=== PATIENT | female | born 1950 | race Caucasian/White ===

== ENCOUNTER 2022-11-17 15:27 | Outpatient (CLI) | payer MEDICARE, OTHER, SELFPAY ==
[2022-11-17 17:11] LABS: Albumin* 4.5 g/dL (3.3-5.0); Chloride* 105 mmol/L (96-114); Potassium* 4.5 mmol/L (3.6-5.1); Sodium* 142 mmol/L (135-149)
[2022-11-17 17:13] LABS: Carbon Dioxide* 30 mmol/L (20-32); Cholesterol* 180 mg/dL (90-199); Creatinine* 0.9 mg/dL (0.5-1.5); Estimated Glomerular Filt Rate 67 ml/min
[2022-11-17 17:14] LABS: Alanine Aminotransferase* 18 U/L (4-35); Alkaline Phosphatase* 84 U/L (40-150); Aspartate Amino Transferase* 23 U/L (12-35); Bilirubin Total* 0.4 mg/dL (0.1-1.5); Blood Urea Nitrogen* 14 mg/dL (7-30); Calcium* 9.9 mg/dL (8.4-10.6); Glucose* 90 mg/dL (60-115); HDL Cholesterol* 70 mg/dL (>=50); LDL Cholesterol Calculated 91 mg/dL (<100); Total Protein* 7.2 g/dL (6.0-8.3); Triglycerides* 94 mg/dL (40-149)
[2022-11-17 17:32] LABS: Vitamin D 25 Hydroxy* 40 ng/mL (30-80)
== END 2022-11-17 15:28 | disposition home or self-care (01) ==
PROVIDERS: PCP Family Medicine; Visit Provider Family Medicine
DX: Z00.00 Encounter for general adult medical examination without abnormal findings (principal); F41.1 Generalized anxiety disorder; R53.83 Other fatigue; E55.9 Vitamin D deficiency, unspecified; E78.2 Mixed hyperlipidemia
CPT/HCPCS: 80053; 80061; 82306; 84443

== ENCOUNTER 2023-02-02 11:24 | Outpatient (CLI) | payer MEDICARE, OTHER, SELFPAY ==
--- NOTE | 2023-02-02 11:30 | CRLHL7_ITS ---
For Patients: As a result of the Century Cures Act, medical imaging exams and procedure reports are released immediately into your electronic medical record. You may view this report before your referring provider. If you have questions, please contact your health care provider. BILATERAL SCREENING MAMMOGRAM WITH COMPUTER-AIDED DETECTION AND TOMOSYNTHESIS TECHNIQUE: CC and MLO views were obtained. These mammographic images have been obtained using full-field digital technique. These mammographic images were interpreted with the benefit of computer-aided detection. Breast Tomosynthesis was used in this interpretation. COMPARISON FILM: 12/18/21, , 12/05/19. FINDINGS: The breasts are heterogeneously dense, which may obscure small masses IMPRESSION: There is no radiographic evidence for malignancy. ASSESSMENT: BI-RADS Category 1: Negative RECOMMENDATION: Routine screening mammogram in 1 year. A lay language report of this examination will be provided to the patient. Ed Mehta M.D. Diagnostic Radiologist [email or web address] DELISA/Dictated by: Ed Mehta MD @ 02/03/2023 9:11:00 AM (Electronically Signed)
== END 2023-02-02 11:25 | disposition home or self-care (01) ==
LOC: MAMMO 11:26
PROVIDERS: PCP Family Medicine; Visit Provider Family Medicine
DX: Z12.31 Encounter for screening mammogram for malignant neoplasm of breast (principal); R92.2 Inconclusive mammogram
CPT/HCPCS: 77063; 77067

== ENCOUNTER 2023-04-12 00:50 | Emergency (ER) | payer MEDICARE, OTHER, SELFPAY ==
[2023-04-12] VITALS (83 sets, daily range): BP systolic 109–162; BP diastolic 59–79; PULSE 54–75; RESP 16; TEMP 35.9–36.4; O2SAT 90–99
--- NOTE | 2023-04-12 01:09 | ED.GENADULT ---
HPI - General Adult General Chief complaint: Nausea/Vomiting <Ed Carlin MD - Last Filed: 04/25/23 10:55> Stated complaint: nausea, chills, diarrhea, constipation <Ed Carlin MD - Last Filed: 04/25/23 10:55> Time Seen by Provider: 04/12/23 01:07 <Ed Carlin MD - Last Filed: 04/25/23 10:55> History of Present Illness HPI narrative: nausea and vomiting for past two hours. reports digestive issues for some time. pt reports pain in shoulders. pt reports feeling cold. pt reports taking two Tylenol earlier today. 72-year-old woman presenting to the emergency department waking from sleep feeling cold and shaking. Had pain in the left periscapular area. Can not really affect the pain much. She thinks this soreness is underneath the scapula. Subsequently was experiencing numerous episodes of vomiting maybe 20 over the last couple of hours. She indicates that her thought she should be evaluated; he says that we just were not heading in the right direction. Does have a history of ?digestive issues? it sounds like struggles with some constipation. Says stools have not been normal really over the last couple of months. Is not experiencing abdominal pain. Does have an appointment pending with her primary care provider for later today. 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 Coronary artery calcium score noted on review of records is less than 100. Does take rosuvastatin. <Ed Carlin MD - Last Filed: 04/25/23 10:55> Related Data Home medications: Home Medications Medication Instructions Recorded Confirmed calcium carbonate 600 mg calcium 1,200 mg PO QDAY 11/17/22 03/23/23 (1,500 mg) tablet (Calcium) cholecalciferol (vitamin D3) 25 25 mcg PO QDAY 11/17/22 03/23/23 mcg (1,000 unit) capsule dextromethorphan-potassium iodine drp PO 11/17/22 03/23/23 15 mg-325 mg/5 mL oral drops lutein 20 mg tablet 20 mg PO QDAY 11/17/22 03/23/23 Previous Rx's Medication Instructions Recorded rosuvastatin 5 mg tablet (Crestor) 5 mg PO QDAY #90 tabs 12/15/22 polyethylene glycol 3350 17 17 g PO QDAY #510 grams 03/23/23 gram/dose oral powder (Miralax) <Ed Carlin MD - Last Filed: 04/25/23 10:55> Allergies/adverse reactions: Allergies Allergy/AdvReac Type Severity Reaction Status Date / Time Milk Containing Products AdvReac Mild Congested Verified 12/15/22 14:08 (Dairy) [Milk Containing Products] Soy Protein Allergy Unknown Headache Uncoded 12/15/22 14:08 <Ed Carlin MD - Last Filed: 04/25/23 10:55> Review of Systems Status of ROS: Reports: 6 or more systems reviewed and unremarkable except as noted in History and below <Ed Carlin MD - Last Filed: 04/25/23 10:55> [facility] Medical History: Medical History [place]at[place] coronary artery calcium score less than 100 (09/2021) ?R93.1 - Abnormal findings on diagnostic imaging of heart and coronary circulation (ICD-10) Splenic artery aneurysm (~2014) ?I72.8 - Aneurysm of other specified arteries (ICD-10) Acquired ureteropelvic junction (UPJ) stricture ?N13.5 - Crossing vessel and stricture of ureter without hydronephrosis (ICD-10) History of cancer of hard palate ?Z85.819 - Personal history of malignant neoplasm of unspecified site of lip, oral cavity, and pharynx (ICD-10) Hearing loss of both ears ?H91.93 - Unspecified hearing loss, bilateral (ICD-10) History of colon polyps ?Z86.010 - Personal history of colonic polyps (ICD-10) History of vitamin D deficiency ?Z86.39 - Personal history of other endocrine, nutritional and metabolic disease (ICD-10) Migraines ?G43.909 - Migraine, unspecified, not intractable, without status migrainosus (ICD-10) CATHLEEN (generalized anxiety disorder) ?F41.1 - Generalized anxiety disorder (ICD-10) <Ed Carlin MD - Last Filed: 04/25/23 10:55> Surgical History: Surgical History History of placement of ear tubes (~2015) ?Z96.22 - Myringotomy tube(s) status (ICD-10) History of colonoscopy (04/02/21) ?Z98.890 - Other specified postprocedural states (ICD-10) History of right breast biopsy ?Z98.890 - Other specified postprocedural states (ICD-10) History of tonsillectomy (~1952) ?Z90.89 - Acquired absence of other organs (ICD-10) History of phacoemulsification of cataract of both eyes with intraocular lens implantation (2017) ?Z98.41 - Cataract extraction status, right eye (ICD-10) ?Z98.42 - Cataract extraction status, left eye (ICD-10) ?Z96.1 - Presence of intraocular lens (ICD-10) History of oral surgery (07/02/15) ?Z98.890 - Other specified postprocedural states (ICD-10) <Ed Carlin MD - Last Filed: 04/25/23 10:55> Family History: Family History Mother Stroke, Onset Age: 80 Dysthymia Atrial fibrillation, Onset Age: 78 Father Colon cancer, Onset Age: 67 Myocardial infarction, Onset Age: 80 Uncle Colon cancer Brother No problems noted. 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 NAD. Describes herself as feeling little foggy headed. Answers questions quickly. Breathing easily. Speech is affected presumably from surgical intervention later this cancer. Lungs appear to be clear. Heart with regular rate and rhythm on auscultation. Abdomen is protuberant soft nontender with present bowel sounds. Extremities are without edema. She is well-perfused. Examination of the back again through traction of the left scapula does result in some mildly reproducible discomfort. <Ed Carlin MD - Last Filed: 04/25/23 10:55> Const: Vital Signs, click to edit/add: Vital Signs - 24 hr 04/12/23 01:00 04/12/23 01:07 04/12/23 01:20 Temperature 96.6 F L Pulse Rate 58 L 57 L Pulse Rate [Left P ulse Oximeter] 55 L Respiratory Rate 16 Blood Pressure Blood Pressure [Ri ght Upper Arm] 162/79 H Pulse Oximetry 99 98 99 Oxygen Delivery Me od Room Air 04/12/23 01:22 04/12/23 01:44 04/12/23 02:00 Temperature Pulse Rate 58 L 54 L 56 L Pulse Rate [Left P ulse Oximeter] Respiratory Rate Blood Pressure 148/74 H Blood Pressure [Ri ght Upper Arm] Pulse Oximetry 99 96 90 Oxygen Delivery Me thod 04/12/23 02:02 04/12/23 02:20 04/12/23 02:22 Temperature Pulse Rate 55 L 58 L 60 Pulse Rate [Left P ulse Oximeter] Respiratory Rate Blood Pressure 137/69 131/63 Blood Pressure [Ri ght Upper Arm] Pulse Oximetry 92 92 94 Oxygen Delivery Me thod 04/12/23 02:40 04/12/23 02:42 04/12/23 03:00 Temperature Pulse Rate 63 60 58 L Pulse Rate [Left P ulse Oximeter] Respiratory Rate Blood Pressure 121/63 Blood Pressure [Ri ght Upper Arm] Pulse Oximetry 96 95 94 Oxygen Delivery Me thod 04/12/23 03:02 04/12/23 03:20 04/12/23 03:22 Temperature Pulse Rate 60 67 70 Pulse Rate [Left P ulse Oximeter] Respiratory Rate Blood Pressure 117/60 113/71 Blood Pressure [Ri ght Upper Arm] Pulse Oximetry 95 98 95 Oxygen Delivery Me thod 04/12/23 03:40 04/12/23 03:42 04/12/23 04:00 Temperature Pulse Rate 67 63 65 Pulse Rate [Left P ulse Oximeter] Respiratory Rate Blood Pressure 115/67 Blood Pressure [Ri ght Upper Arm] Pulse Oximetry 97 97 94 Oxygen Delivery Me thod 04/12/23 04:20 04/12/23 04:21 04/12/23 04:22 Temperature Pulse Rate 59 L 59 L 63 Pulse Rate [Left P ulse Oximeter] Respiratory Rate Blood Pressure 137/68 133/66 Blood Pressure [Ri ght Upper Arm] Pulse Oximetry 97 98 98 Oxygen Delivery Me thod 04/12/23 04:23 04/12/23 04:40 04/12/23 04:42 Temperature Pulse Rate 60 61 58 L Pulse Rate [Left P ulse Oximeter] Respiratory Rate Blood Pressure 127/66 Blood Pressure [Ri ght Upper Arm] Pulse Oximetry 97 92 93 Oxygen Delivery Me thod 04/12/23 05:00 04/12/23 05:02 04/12/23 05:20 Temperature Pulse Rate 60 59 L 63 Pulse Rate [Left P ulse Oximeter] Respiratory Rate Blood Pressure 119/65 Blood Pressure [Ri ght Upper Arm] Pulse Oximetry 94 94 96 Oxygen Delivery Me thod 04/12/23 05:22 04/12/23 05:40 04/12/23 05:41 Temperature Pulse Rate 60 60 68 Pulse Rate [Left P ulse Oximeter] Respiratory Rate Blood Pressure 120/64 124/64 Blood Pressure [Ri ght Upper Arm] Pulse Oximetry 95 93 96 Oxygen Delivery Me thod 04/12/23 06:00 04/12/23 06:02 04/12/23 06:20 Temperature Pulse Rate 69 62 62 Pulse Rate [Left P ulse Oximeter] Respiratory Rate Blood Pressure 123/62 Blood Pressure [Ri ght Upper Arm] Pulse Oximetry 95 94 92 Oxygen Delivery Me thod 04/12/23 06:22 04/12/23 06:40 04/12/23 06:42 Temperature Pulse Rate 59 L 69 70 Pulse Rate [Left P ulse Oximeter] Respiratory Rate Blood Pressure 113/65 114/60 Blood Pressure [Ri ght Upper Arm] Pulse Oximetry 96 95 93 Oxygen Delivery Me thod 04/12/23 07:00 04/12/23 07:03 04/12/23 07:20 Temperature Pulse Rate 71 70 65 Pulse Rate [Left P ulse Oximeter] Respiratory Rate Blood Pressure 112/64 Blood Pressure [Ri ght Upper Arm] Pulse Oximetry 96 95 96 Oxygen Delivery Me thod 04/12/23 07:25 04/12/23 07:34 04/12/23 07:39 Temperature 97.6 F Pulse Rate 64 66 Pulse Rate [Left P ulse Oximeter] Respiratory Rate Blood Pressure 109/68 Blood Pressure [Ri ght Upper Arm] Pulse Oximetry 94 97 Oxygen Delivery Me thod <Ed Carlin MD - Last Filed: 04/25/23 10:55> Vital Signs, click to edit/add: Vital Signs - 24 hr 04/12/23 01:00 04/12/23 01:07 04/12/23 01:20 Temperature 96.6 F L Pulse Rate 58 L 57 L Pulse Rate [Left P ulse Oximeter] 55 L Respiratory Rate 16 Blood Pressure Blood Pressure [Ri ght Upper Arm] 162/79 H Pulse Oximetry 99 98 99 Oxygen Delivery Me thod Room Air 04/12/23 01:22 04/12/23 01:44 04/12/23 02:00 Temperature Pulse Rate 58 L 54 L 56 L Pulse Rate [Left P ulse Oximeter] Respiratory Rate Blood Pressure 148/74 H Blood Pressure [Ri ght Upper Arm] Pulse Oximetry 99 96 90 Oxygen Delivery Me thod 04/12/23 02:02 04/12/23 02:20 04/12/23 02:22 Temperature Pulse Rate 55 L 58 L 60 Pulse Rate [Left P ulse Oximeter] Respiratory Rate Blood Pressure 137/69 131/63 Blood Pressure [Ri ght Upper Arm] Pulse Oximetry 92 92 94 Oxygen Delivery Me thod 04/12/23 02:40 04/12/23 02:42 04/12/23 03:00 Temperature Pulse Rate 63 60 58 L Pulse Rate [Left P ulse Oximeter] Respiratory Rate Blood Pressure 121/63 Blood Pressure [Ri ght Upper Arm] Pulse Oximetry 96 95 94 Oxygen Delivery Me thod 04/12/23 03:02 04/12/23 03:20 04/12/23 03:22 Temperature Pulse Rate 60 67 70 Pulse Rate [Left P ulse Oximeter] Respiratory Rate Blood Pressure 117/60 113/71 Blood Pressure [Ri ght Upper Arm] Pulse Oximetry 95 98 95 Oxygen Delivery Me thod 04/12/23 03:40 04/12/23 03:42 04/12/23 04:00 Temperature Pulse Rate 67 63 65 Pulse Rate [Left P ulse Oximeter] Respiratory Rate Blood Pressure 115/67 Blood Pressure [Ri ght Upper Arm] Pulse Oximetry 97 97 94 Oxygen Delivery Me thod 04/12/23 04:20 04/12/23 04:21 04/12/23 04:22 Temperature Pulse Rate 59 L 59 L 63 Pulse Rate [Left P ulse Oximeter] Respiratory Rate Blood Pressure 137/68 133/66 Blood Pressure [Ri ght Upper Arm] Pulse Oximetry 97 98 98 Oxygen Delivery Me thod 04/12/23 04:23 04/12/23 04:40 04/12/23 04:42 Temperature Pulse Rate 60 61 58 L Pulse Rate [Left P ulse Oximeter] Respiratory Rate Blood Pressure 127/66 Blood Pressure [Ri ght Upper Arm] Pulse Oximetry 97 92 93 Oxygen Delivery Me thod 04/12/23 05:00 04/12/23 05:02 04/12/23 05:20 Temperature Pulse Rate 60 59 L 63 Pulse Rate [Left P ulse Oximeter] Respiratory Rate Blood Pressure 119/65 Blood Pressure [Ri ght Upper Arm] Pulse Oximetry 94 94 96 Oxygen Delivery Me thod 04/12/23 05:22 04/12/23 05:40 04/12/23 05:41 Temperature Pulse Rate 60 60 68 Pulse Rate [Left P ulse Oximeter] Respiratory Rate Blood Pressure 120/64 124/64 Blood Pressure [Ri ght Upper Arm] Pulse Oximetry 95 93 96 Oxygen Delivery Me thod 04/12/23 06:00 04/12/23 06:02 04/12/23 06:20 Temperature Pulse Rate 69 62 62 Pulse Rate [Left P ulse Oximeter] Respiratory Rate Blood Pressure 123/62 Blood Pressure [Ri ght Upper Arm] Pulse Oximetry 95 94 92 Oxygen Delivery Me thod 04/12/23 06:22 04/12/23 06:40 04/12/23 06:42 Temperature Pulse Rate 59 L 69 70 Pulse Rate [Left P ulse Oximeter] Respiratory Rate Blood Pressure 113/65 114/60 Blood Pressure [Ri ght Upper Arm] Pulse Oximetry 96 95 93 Oxygen Delivery Me thod 04/12/23 07:00 04/12/23 07:03 04/12/23 07:20 Temperature Pulse Rate 71 70 65 Pulse Rate [Left P ulse Oximeter] Respiratory Rate Blood Pressure 112/64 Blood Pressure [Ri ght Upper Arm] Pulse Oximetry 96 95 96 Oxygen Delivery Me thod 04/12/23 07:25 04/12/23 07:34 04/12/23 07:39 Temperature 97.6 F Pulse Rate 64 66 Pulse Rate [Left P ulse Oximeter] Respiratory Rate Blood Pressure 109/68 Blood Pressure [Ri ght Upper Arm] Pulse Oximetry 94 97 Oxygen Delivery Me thod <Kimberly Medrano MD - Last Filed: 04/12/23 09:28> Documenting provider has reviewed patient's vital signs: yes <Ed Carlin MD - Last Filed: 04/25/23 10:55> Course Reevaluation(s) Time of Reevaluation #1: 09:27 <Kimberly Medrano MD - Last Filed: 04/12/23 09:28> Reevaluation #1: Assumed care from Dr. Carlin. Patient's potassium is mildly low at 3.2, given non STEMI status and potential for angiography at receiving institution, will correct this with some IV potassium. <Kimberly Medrano MD - Last Filed: 04/12/23 09:28> Vital Signs Vital signs: Initial Vital Signs Temperature 96.6 F L 04/12/23 01:00 Temperature Source Temporal Artery Scan 04/12/23 01:00 Pulse Rate 55 L 04/12/23 01:00 Pulse Rhythm Regular 04/12/23 01:00 Respiratory Rate 16 04/12/23 01:00 Blood Pressure 162/79 H 04/12/23 01:00 Blood Pressure Mean 106 H 04/12/23 01:00 Blood Pressure Position Semi-Fowlers 04/12/23 01:00 Pulse Oximetry 99 04/12/23 01:00 Oxygen Delivery Method Room Air 04/12/23 01:00 Vital Signs Temperature 96.6 F L 04/12/23 01:00 Pulse Rate 55 L 04/12/23 01:00 Respiratory Rate 16 04/12/23 01:00 Blood Pressure 162/79 H 04/12/23 01:00 Pulse Oximetry 99 04/12/23 01:00 Oxygen Delivery Method Room Air 04/12/23 01:00 Temperature 97.6 F 04/12/23 07:39 Pulse Rate 54 L 04/12/23 13:40 Respiratory Rate 16 04/12/23 01:00 Blood Pressure 122/69 04/12/23 13:32 Pulse Oximetry 93 04/12/23 13:40 Oxygen Delivery Method Room Air 04/12/23 13:30 <Ed Carlin MD - Last Filed: 04/25/23 10:55> Initial Vital Signs Temperature 96.6 F L 04/12/23 01:00 Temperature Source Temporal Artery Scan 04/12/23 01:00 Pulse Rate 55 L 04/12/23 01:00 Pulse Rhythm Regular 04/12/23 01:00 Respiratory Rate 16 04/12/23 01:00 Blood Pressure 162/79 H 04/12/23 01:00 Blood Pressure Mean 106 H 04/12/23 01:00 Blood Pressure Position Semi-Fowlers 04/12/23 01:00 Pulse Oximetry 99 04/12/23 01:00 Oxygen Delivery Method Room Air 04/12/23 01:00 Vital Signs Temperature 96.6 F L 04/12/23 01:00 Pulse Rate 55 L 04/12/23 01:00 Respiratory Rate 16 04/12/23 01:00 Blood Pressure 162/79 H 04/12/23 01:00 Pulse Oximetry 99 04/12/23 01:00 Oxygen Delivery Method Room Air 04/12/23 01:00 Temperature 97.6 F 04/12/23 07:39 Pulse Rate 54 L 04/12/23 13:40 Respiratory Rate 16 04/12/23 01:00 Blood Pressure 122/69 04/12/23 13:32 Pulse Oximetry 93 04/12/23 13:40 Oxygen Delivery Method Room Air 04/12/23 13:30 <Kimberly Medrano MD - Last Filed: 04/12/23 09:28> Medical Decision Making MDM Narrative Medical decision making narrative: It seems that is experiencing vomiting illness. She does not have any ill exposures. There is also in the setting of ?digestive issues?. And the pain is a little puzzling. I think warrants cardiac evaluation. Does not actually have any abdominal pain. Chest x-ray one view portable reviewed by me does show some perihilar fullness. Of note and labs in the setting of a normal creatinine returns a troponin I of 0.15. Given aspirin. Repeat troponin and EKG pending. Iniitial EKG though reviewed by me in a bradycardia sinus rate of 58. Do not see significant ischemic changes. Repeat EKG approximately 2 hours later is without I think significant change. Rate of 61 in sinus rhythm. Smaller voltage compared though to prior. Troponin has elevated further at 0.59. No beds are available regionally at this time. Discussed this with Cardiology on-call for [email or web address]. Question of whether or not this may actually be ?elevated troponin? or NSTEMI. Transaminases are normal. Understandably Cardiology suspects lower risk. Recommending admission, possibly at this facility for further cardiac workup. I ask to be on wait list at least for [email or web address]. 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 Decide to check troponin again and if still elevating would initiate heparin per ACS protocol. Heparin indeed still elevating, possibly trajectory, at 0.91. Initiating heparin. Pending transport [email or web address]. Discussed with patient. <Ed Carlin MD - Last Filed: 04/25/23 10:55> Lab Data Lab results reviewed: Yes I reviewed the patient's lab results <Ed Carlin MD - Last Filed: 04/25/23 10:55> Labs: Lab Results 04/12/23 04/12/23 04/12/23 Range/Units 01:40 03:30 05:40 WBC 6.98 (4.50-11.00) K/uL RBC 4.47 (4.00-5.20) m/uL Hgb 13.0 (12.0-16.0) gm/dL Hct 40.3 (33.0-51.0) % MCV 90 (80-100) fL MCH 29 (26-34) pg MCHC 32 (32-36) gm/dL RDW Coeff of Berenice 13.3 (11.5-15.5) % Plt Count 170 (140-440) K/uL Neut % (Auto) 86.2 H (42.0-72.0) % Lymph % (Auto) 8.2 L (20-44) % Gregg % (Auto) 5.0 (0.0-11.0) % Eos % (Auto) 0.4 (0.0-7.0) % Baso % (Auto) 0.1 (0.0-3.0) % Neut # (Auto) 6.00 (1.7-7.0) K/uL Lymph # (Auto) 0.60 L (0.90-2.90) K/uL Gregg # (Auto) 0.30 (0.00-0.90) K/UL Eos # (Auto) 0.03 (0.00-0.50) K/uL Baso # (Auto) 0.01 (0.00-0.30) K/uL Abs Immat Gran (auto) 0.01 (0.00-0.30) K/uL Imm/Tot Granulo (auto) 0.1 % INR (0.91-1.10) APTT (23-33) Seconds D-Dimer Quant (PE/DVT) < 0.27 (0.00-0.50) ug/ml Sodium 140 (135-149) mmol/L Potassium 3.2 L (3.6-5.1) mmol/L Chloride 103 (96-114) mmol/L Carbon Dioxide 31 (20-32) mmol/L BUN 13 (7-30) mg/dL Creatinine 0.8 (0.5-1.5) mg/dL Estimated GFR 77 ml/min Glucose 117 H (60-115) mg/dL Calcium 9.3 (8.4-10.6) mg/dL Total Bilirubin 0.6 (0.1-1.5) mg/dL Direct Bilirubin 0.2 (0.0-0.5) mg/dL AST 25 (12-35) U/L ALT 20 (4-35) U/L Alkaline Phosphatase 64 (40-150) U/L Troponin I 0.15 H* 0.59 H* 0.91 H* (0.01-0.04) ng/mL C-Reactive Protein < 0.5 L (0.5-1.0) mg/dL NT-Pro-B Natriuret Pep 494 pg/mL Total Protein 7.3 (6.0-8.3) g/dL Albumin 4.5 (3.3-5.0) g/dL Lipase 94 (23-300) U/L 04/12/23 Range/Units 07:10 WBC (4.50-11.00) K/uL RBC (4.00-5.20) m/uL Hgb (12.0-16.0) gm/dL Hct (33.0-51.0) % MCV (80-100) fL MCH (26-34) pg MCHC (32-36) gm/dL RDW Coeff of Berenice (11.5-15.5) % Plt Count (140-440) K/uL Neut % (Auto) (42.0-72.0) % Lymph % (Auto) (20-44) % Gregg % (Auto) (0.0-11.0) % Eos % (Auto) (0.0-7.0) % Baso % (Auto) (0.0-3.0) % Neut # (Auto) (1.7-7.0) K/uL Lymph # (Auto) (0.90-2.90) K/uL Gregg # (Auto) (0.00-0.90) K/UL Eos # (Auto) (0.00-0.50) K/uL Baso # (Auto) (0.00-0.30) K/uL Abs Immat Gran (auto) (0.00-0.30) K/uL Imm/Tot Granulo (auto) % INR 1.23 H (0.91-1.10) APTT (23-33) Seconds D-Dimer Quant (PE/DVT) (0.00-0.50) ug/ml Sodium (135-149) mmol/L Potassium (3.6-5.1) mmol/L Chloride (96-114) mmol/L Carbon Dioxide (20-32) mmol/L BUN (7-30) mg/dL Creatinine (0.5-1.5) mg/dL Estimated GFR ml/min Glucose (60-115) mg/dL Calcium (8.4-10.6) mg/dL Total Bilirubin (0.1-1.5) mg/dL Direct Bilirubin (0.0-0.5) mg/dL AST (12-35) U/L ALT (4-35) U/L Alkaline Phosphatase (40-150) U/L Troponin I (0.01-0.04) ng/mL C-Reactive Protein (0.5-1.0) mg/dL NT-Pro-B Natriuret Pep pg/mL Total Protein (6.0-8.3) g/dL Albumin (3.3-5.0) g/dL Lipase (23-300) U/L <Ed Carlin MD - Last Filed: 04/25/23 10:55> Lab Results 04/12/23 04/12/23 04/12/23 Range/Units 01:40 03:30 05:40 WBC 6.98 (4.50-11.00) K/uL RBC 4.47 (4.00-5.20) m/uL Hgb 13.0 (12.0-16.0) gm/dL Hct 40.3 (33.0-51.0) % MCV 90 (80-100) fL MCH 29 (26-34) pg MCHC 32 (32-36) gm/dL RDW Coeff of Berenice 13.3 (11.5-15.5) % Plt Count 170 (140-440) K/uL Neut % (Auto) 86.2 H (42.0-72.0) % Lymph % (Auto) 8.2 L (20-44) % Gregg % (Auto) 5.0 (0.0-11.0) % Eos % (Auto) 0.4 (0.0-7.0) % Baso % (Auto) 0.1 (0.0-3.0) % Neut # (Auto) 6.00 (1.7-7.0) K/uL Lymph # (Auto) 0.60 L (0.90-2.90) K/uL Gregg # (Auto) 0.30 (0.00-0.90) K/UL Eos # (Auto) 0.03 (0.00-0.50) K/uL Baso # (Auto) 0.01 (0.00-0.30) K/uL Abs Immat Gran (auto) 0.01 (0.00-0.30) K/uL Imm/Tot Granulo (auto) 0.1 % INR (0.91-1.10) APTT (23-33) Seconds D-Dimer Quant (PE/DVT) < 0.27 (0.00-0.50) ug/ml Sodium 140 (135-149) mmol/L Potassium 3.2 L (3.6-5.1) mmol/L Chloride 103 (96-114) mmol/L Carbon Dioxide 31 (20-32) mmol/L BUN 13 (7-30) mg/dL Creatinine 0.8 (0.5-1.5) mg/dL Estimated GFR 77 ml/min Glucose 117 H (60-115) mg/dL Calcium 9.3 (8.4-10.6) mg/dL Total Bilirubin 0.6 (0.1-1.5) mg/dL Direct Bilirubin 0.2 (0.0-0.5) mg/dL AST 25 (12-35) U/L ALT 20 (4-35) U/L Alkaline Phosphatase 64 (40-150) U/L Troponin I 0.15 H* 0.59 H* 0.91 H* (0.01-0.04) ng/mL C-Reactive Protein < 0.5 L (0.5-1.0) mg/dL NT-Pro-B Natriuret Pep 494 pg/mL Total Protein 7.3 (6.0-8.3) g/dL Albumin 4.5 (3.3-5.0) g/dL Lipase 94 (23-300) U/L 04/12/23 Range/Units 07:10 WBC (4.50-11.00) K/uL RBC (4.00-5.20) m/uL Hgb (12.0-16.0) gm/dL Hct (33.0-51.0) % MCV (80-100) fL MCH (26-34) pg MCHC (32-36) gm/dL RDW Coeff of Berenice (11.5-15.5) % Plt Count (140-440) K/uL Neut % (Auto) (42.0-72.0) % Lymph % (Auto) (20-44) % Gregg % (Auto) (0.0-11.0) % Eos % (Auto) (0.0-7.0) % Baso % (Auto) (0.0-3.0) % Neut # (Auto) (1.7-7.0) K/uL Lymph # (Auto) (0.90-2.90) K/uL Gregg # (Auto) (0.00-0.90) K/UL Eos # (Auto) (0.00-0.50) K/uL Baso # (Auto) (0.00-0.30) K/uL Abs Immat Gran (auto) (0.00-0.30) K/uL Imm/Tot Granulo (auto) % INR 1.23 H (0.91-1.10) APTT (23-33) Seconds D-Dimer Quant (PE/DVT) (0.00-0.50) ug/ml Sodium (135-149) mmol/L Potassium (3.6-5.1) mmol/L Chloride (96-114) mmol/L Carbon Dioxide (20-32) mmol/L BUN (7-30) mg/dL Creatinine (0.5-1.5) mg/dL Estimated GFR ml/min Glucose (60-115) mg/dL Calcium (8.4-10.6) mg/dL Total Bilirubin (0.1-1.5) mg/dL Direct Bilirubin (0.0-0.5) mg/dL AST (12-35) U/L ALT (4-35) U/L Alkaline Phosphatase (40-150) U/L Troponin I (0.01-0.04) ng/mL C-Reactive Protein (0.5-1.0) mg/dL NT-Pro-B Natriuret Pep pg/mL Total Protein (6.0-8.3) g/dL Albumin (3.3-5.0) g/dL Lipase (23-300) U/L <Kimberly Medrano MD - Last Filed: 04/12/23 09:28> Critical Care Time Critical Care Time Critical Care Time: Yes Attestation: The patient required my highest level preparedness to intervene emergently and I personally spent this critical care time directly and personally managing the patient. This critical care time included: Obtaining a history; Examining the patient; Pulse oximetry; Ordering and reviewing of studies; Arranging urgent treatment with development of a management plan; Evaluation of patients response to treatment; Frequent reassessment discussions with other providers. This critical care time was performed to assess and manage the high probability of imminent life-threatening deterioration that could result in multiorgan failure. It was exclusive of separate billable procedures and treating other patients and teaching time. <Ed Carlin MD - Last Filed: 04/25/23 10:55> Total Critical Care Time in Minutes: 60 <Ed Carlin MD - Last Filed: 04/25/23 10:55> Discharge Plan Discharge Clinical Impression: Non-ST elevation [place] (NSTEMI) <Ed Carlin MD - Last Filed: 04/25/23 10:55> Patient Disposition: [facility] <Ed Carlin MD - Last Filed: 04/25/23 10:55> Discharge Location: [facility] <Ed Carlin MD - Last Filed: 04/25/23 10:55> Prescriptions: No Action polyethylene glycol 3350 [Miralax] 17 gram/dose powder 17 g PO QDAY Qty: 510 4RF Rx Instructions: take once daily with full glass water cholecalciferol (vitamin D3) 25 mcg (1,000 unit) capsule 25 mcg PO QDAY calcium carbonate [Calcium 600] 600 mg calcium (1,500 mg) tablet 1,200 mg PO QDAY lutein 20 mg tablet 20 mg PO QDAY Rx Instructions: give with meal/snack dextromethorphan-potass iodine 15-325 mg/5 mL drops PO rosuvastatin [Crestor] 5 mg tablet 5 mg PO QDAY Qty: 90 4RF <Ed Carlin MD - Last Filed: 04/25/23 10:55> Stand Alone Forms: [facility] Info Instructions <Ed Carlin MD - Last Filed: 04/25/23 10:55>
--- NOTE | 2023-04-12 01:23 | CRLHL7_ITS ---
For Patients: As a result of the Cures Act, medical imaging exams and procedure reports are released immediately into your electronic medical record. You may view this report before your referring provider. If you have questions, please contact your health care provider. INDICATION: Chest pain. TECHNIQUE: Chest 1 views. COMPARISON: None. FINDINGS: Cardiovascular and mediastinum: Cardiomediastinal silhouette is within normal limits. Lungs and pleural spaces: Subtle increased bilateral interstitial opacities may be related to edema, airways disease. No sign of pleural effusion. No pneumothorax. Bones and soft tissues: No significant findings. IMPRESSION: Subtle increased bilateral interstitial opacities may be related to edema, airways disease or viral infection. Dictated by Trinh Malik MD @ 04/12/2023 2:05:45 AM (Electronically Signed)
[2023-04-12] MEDS: 0.9 % SODIUM CHLORIDE 1000 ml 1,000 ML IV (01:50)
[2023-04-12] MEDS: ONDANSETRON 2 MG/ML inj 4 MG IVP (01:50)
[2023-04-12 02:05] LABS: Basophils Absolute Auto 0.01 K/uL (0.00-0.30); Basophils Percent Auto 0.1 % (0.0-3.0); Eosinophils Absolute Auto 0.03 K/uL (0.00-0.50); Eosinophils Percent Auto 0.4 % (0.0-7.0); Hematocrit 40.3 % (33.0-51.0); Immature Granulocytes Abs Auto 0.01 K/uL (0.00-0.30); Immature Granulocytes Pct Auto 0.1 %; Lymphocytes Percent Auto 8.2 % (20-44); Mean Corpuscular HGB Conc 32 gm/dL (32-36); Mean Corpuscular Hemoglobin 29 pg (26-34); Mean Corpuscular Volume 90 fL (80-100); Neutrophils Percent Auto 86.2 % (42.0-72.0); Platelet Count* 170 K/uL (140-440); RDW Coefficient of Variation % 13.3 % (11.5-15.5); Red Blood Count 4.47 m/uL (4.00-5.20); White Blood Count* 6.98 K/uL (4.50-11.00)
[2023-04-12 02:10] LABS: Slide Review Reflex No
[2023-04-12 02:19] LABS: Albumin* 4.5 g/dL (3.3-5.0)
[2023-04-12 02:21] LABS: Chloride* 103 mmol/L (96-114)
[2023-04-12 02:22] LABS: Alanine Aminotransferase* 20 U/L (4-35); Alkaline Phosphatase* 64 U/L (40-150); Aspartate Amino Transferase* 25 U/L (12-35); Bilirubin Direct* 0.2 mg/dL (0.0-0.5); Bilirubin Total* 0.6 mg/dL (0.1-1.5); Lipase* 94 U/L (23-300); Potassium* 3.2 mmol/L (3.6-5.1); Sodium* 140 mmol/L (135-149); Total Protein* 7.3 g/dL (6.0-8.3)
[2023-04-12 02:23] LABS: D Dimer Quantitative* < 0.27 ug/ml (0.00-0.50)
[2023-04-12 02:24] LABS: Creatinine* 0.8 mg/dL (0.5-1.5); Estimated Glomerular Filt Rate 77 ml/min
[2023-04-12 02:25] LABS: Blood Urea Nitrogen* 13 mg/dL (7-30); Calcium* 9.3 mg/dL (8.4-10.6); Carbon Dioxide* 31 mmol/L (20-32); Glucose* 117 mg/dL (60-115)
[2023-04-12 02:29] LABS: C Reactive Protein* < 0.5 mg/dL (0.5-1.0)
[2023-04-12 02:38] LABS: NT Pro B Type NatriureticPept* 494 pg/mL; Troponin I* 0.15 ng/mL (0.01-0.04)
[2023-04-12] MEDS: ASPIRIN 81 MG TAB.CHEW 324 MG PO (03:18)
[2023-04-12 04:14] LABS: Troponin I* 0.59 ng/mL (0.01-0.04)
[2023-04-12 06:19] LABS: Troponin I* 0.91 ng/mL (0.01-0.04)
[2023-04-12] MEDS: HEPARIN 5,000 UNIT/0.5 ML INJ 3200 UNIT IVP (06:55)
[2023-04-12] MEDS: HEPARIN 25,000 UNIT/500 ML BAG 13 UNIT IV (06:56)
[2023-04-12 07:37] LABS: INR 1.23 (0.91-1.10); Prothrombin Time 16.2 Seconds
--- NOTE | 2023-04-12 07:43 | ED.NURSE ---
report received, care taken over. pt resting in bed. denies pain and nausea at this time. asking if will be able to drive her to [place] [facility] [employer] made pt aware she will go by ambulance but unsure of when bed will be available. pt wants to know when she will be leaving.
[2023-04-12] MEDS: POTASSIUM CHLORIDE 10 MEQ/100 ML PIGGYBACK 100 MEQ IVPB ×2 (10:01→11:10)
--- NOTE | 2023-04-12 11:56 | ED.NURSE ---
report given to courtney ramirez at [facility]. pt will transfer to [id number]. [facility] paged.
--- NOTE | 2023-04-12 14:05 | ED.NURSE ---
pt transferred to [place] via [facility] at [id number]
== END 2023-04-12 14:05 | disposition short-term general hospital (02) ==
PROVIDERS: Emergency Provider Family Medicine; PCP Family Medicine
DX: I21.4 Non-ST elevation (NSTEMI) myocardial infarction (principal); Z87.891 Personal history of nicotine dependence
CPT/HCPCS: 36415; 71045; 80048; 80076; 83690; 83880; 84484; 85025; 85379; 85610; 85730; 86140; 93005; 96365; 96375; 99284; 99291; A9270; J1644; J2405; J3480; J7030

== ENCOUNTER 2023-04-12 13:46 | Outpatient (CLI) | payer MEDICARE, OTHER, SELFPAY | END 2023-04-12 13:47 | disposition home or self-care (01) | LOC: AMB 04-13 10:31 | PROVIDERS: PCP Family Medicine; Visit Provider Family Medicine | DX: I21.4 Non-ST elevation (NSTEMI) myocardial infarction (principal) | CPT/HCPCS: A0425; A0427; A0428 ==

== ENCOUNTER 2024-02-07 07:53 | Outpatient (CLI) | payer MEDICARE, OTHER, SELFPAY ==
--- OUTSIDE RECORDS SUMMARY | 2024-02-07 07:58 | XMS_ITS | Clinical Summary ---
Author Name Unknown Organization [employer] [facility] Address [place], [place] [address] Care Team Providers Care Buttoner Name Role Phone Nelda Dawkins MD Primary Care Provider + Allergies Active Allergy Reactions Criticality Noted Date Comments Milk Runny Nose High 11/19/2011 Escitalopram Other - Describe In Comment Field,Headache High 07/20/2013 migraine migraine Soy Protein Headache High 11/19/2011 Medications Medication Sig Dispensed Refills Start Date End Date Status sodium fluoride dental 1.1 % gel by Dental route. 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 0 12/25/2021 Active ciprofloxacin-dexAME THasone (CIPRODEX) otic suspension Place 4 Drops into both ears 2 times daily if needed. 05/17/2022 Active sennosides-docusate (Senokot-S) (8.6-50 mg) tablet Take 2 Tablets by mouth two times daily. Active lutein 20 mg capsule Take 20 mg by mouth once daily. Active acetaminophen (Tylenol Extra Strength) 500 mg tablet Take 1,000 mg by mouth 2 times daily if needed. Max acetaminophen dose: 4000mg in 24 hrs. Active artificial tears, peg 400-propylene glycol, (Systane) 0.4-0.3 % ophthalmic dropperette Place 1-2 Drops into both eyes once daily. And additional twice daily as needed. Active aspirin chewable 81 mg chewable tabletIndications:Co ronary artery disease, unspecified vessel or lesion type, unspecified whether angina present, unspecified whether [place] or transplanted heart Chew 1 Tablet (81 mg) by mouth once daily with a meal. 0 04/14/2023 Active nitroglycerin (NITROSTAT) 0.4 mg sublingual tabletIndications:Co ronary artery disease, unspecified vessel or lesion type, unspecified whether angina present, unspecified whether [place] or transplanted heart Place 1 Tablet (0.4 mg) under the tongue every 5 minutes if needed for Chest Pain. 25 Tablet 3 04/13/2023 Active rosuvastatin (CRESTOR) 10 mg tabletIndications:El evated coronary artery calcium score,Hyperlipidemia , unspecified hyperlipidemia type Take 1 Tablet (10 mg) by mouth at bedtime. 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 Diastolic congestive heart f ailure, unspecified HF chronicity 12/30/2023 Splenic artery aneurysm 12/30/2023 Coronary artery disease of n ative artery of [place] heart with stable angina pectoris 12/30/2023 Acquired ureteropelvic junction (UPJ) stricture 12/30/2023 CAD (coronary artery disease) 04/12/2023 NSTEMI (non-ST elevated myocardial infarction) 0 04/12/2023 Generalized anxiety disorder 06/26/2013 Insomnia 06/22/2013 History of colonic polyps 11/11/2010 Overview: Colonoscopy 11/2010 normal repeat in 5 years Colonoscopy 11/2015 diverticulosis repeat in 5 years Colonoscopy 04/2021 polyp, repeat in 5 years Unspecified vitamin D deficiency 08/04/2007 Mixed hyperlipidemia 07/28/2007 Adenoid cystic carcinoma of hard palate Resolved Problems Problem Noted Date Diagnosed Date Resolved Date R/o Panic disorder 06/26/2013 Anxiety disorder 06/22/2013 08/17/2013 Encounters Date Type Department Care Team Description 01/31/2024 1:43 PM CDT - 01/31/2024 11:59 PM CDT Hospital Encounter [facility] [id number] [place] [address] [address] [place] [address] Bibi Acosta DO Fuller, Brent J, PT 01/31/2024 Travel 01/24/2024 11:00 AM CDT Office Visit [facility] [address] [place] [address] Mercedes Lewis MD Follow Up (6 month Follow up /Tricuspid valve insufficiency) 01/24/2024 Travel 01/16/2024 12:24 PM CDT - 01/16/2024 11:59 PM CDT Hospital Encounter [facility] [id number] [place] [address] [address] [place] [address] Bibi Acosta DO Fuller, Brent J, PT Foot pain, right 01/16/2024 10:00 AM CDT Ancillary Procedure [facility] [address] [place] [address] 01/16/2024 Travel 12/28/2023 2:10 PM CDT Office Visit [facility] [address] [place] [address] Bibi Acosta DO Establish Care; Diarrhea (Chronic diarrhea/constipati on); Foot Problem (R foot pain, would like referral to PT) 12/28/2023 Travel 12/19/2023 Orders Only [facility] Scanner 1 scan: (1-Ord) INCOMING RECORDS-LABS, [facility] , 12/19/2023 from Last 3 Months Immunizations Name Administration Dates Next Due COVID-19 vaccine (Frockadvisor-Bio NTech 30mcg/0.3mL) 12YO+ LUIS-SUCROSE EDMUNDO ERWIN 12/25/2021 Influenza RIV4 (Age 18+ Years) PRESERV FREE 01/2021 Influenza, High-dose Inactivated 07/30/2019,07/04,07/17/2018 Pneumococcal Poly,23-Valent (Pneumovax) 09/12/20 19 Pneumococcal conj 13-Valent (Prevnar 13) 018 Td (Age >=7 Years) 2002 Tdap 02/28/2019,11/13/2010 Zoster (Shingrix-RZV, recombinant) 06/14/2019, Family History Medical History Relation Name Comments Hyperlipidemia Brother 2 Cancer-colon Father Heart Disease Father CT in his 80s (jacqueline-operative) Other Mother dysrhythmia Stroke Mother at 88 Diabetes Other none Cancer-colon Paternal Uncle Cancer-breast No Family History Relation Name Status Comments Brother 1 Alive Brother 2 Father (Age 90) colon ca Maternal Grandfather Maternal Grandmother Mother (Age 88) Other Paternal Grandfather Paternal Grandmother Paternal Uncle Son 1 Alive Son 2 Alive Son 3 Alive Social History Tobacco Use Types Packs/Day Years Used Date Smoking Tobacco: Former Cigarettes Q uit: 10/03/1980 Smokeless Tobacco: Never Tobacco Cessation:Counseling Given: Yes Alcohol Use Standard Drinks/Week Comments Yes 0 (1 standard drink = 0.6 oz pur e alcohol) occas: social: rare PHQ-2 Answer Date Recorded PHQ-2 TOTAL SCORE 2 09/14/2021 Social Connections Answer Date Recorded Frequency of Communication with Friends and Fami ly 0 12/28/2023 Financial Resource Strain Answer Date R ecorded Difficulty of Paying Living Expenses 3 12/28/2023 Difficulty of Paying Living Expenses Not on file 12/28/2023 Food Insecurity Answer Date Recorded Worried About Running Out of Food in the Last Ye ar 1 12/28/2023 Transportation Needs Answer Date Record ed Lack of Transportation (Medical) 1 12/28/2023 Housing Stability Answer Date Recorded Unable to Pay for Housing in the Last Year 1 12/28/2023 Sex and Gender Information Value Date Recorded Sex Assigned at Not on file Gender Identity Not on file Sexual Orientation Not on file Obstetrics History Para Term AB IAB SAB Ectopic Multiple Livin g Live Births 3 3 0 3 3 Date Outcome GA Total Labor Labor/2nd/3rd Weight Sex Delivery Anes PTL Machelle A1 A5 Name Cl in Para M Vag Adelaide ng Para M Vag Adelaide ng Para M Vag Adelaide ng Last Filed Vital Signs Vital Sign Reading Time Taken Comments Blood Pressure 129/76 01/24/2024 11:10 AM CDT Pulse 68 01/24/2024 11:10 AM CDT Temperature 36.5 ??C (97.7 ??F) 04/13/2023 12:04 PM C DT Respiratory Rate 16 04/13/2023 12:04 PM CDT Oxygen Saturation 99% 01/24/2024 11:10 AM CDT Inhaled Oxygen Concentration - - Weight 55.2 kg (121 lb 9.6 oz) 01/24/2024 11:10 AM CDT Height 158.8 cm (5' 2.5) 04/13/2023 6:20 AM CDT Body Mass Index 21.89 04/13/2023 6:20 AM CDT Plan of Treatment Upcoming Encounters Date Type Department Care Team (Late st Contact Info) Description 02/13/2024 1:45 PM CDT Appointment [facility] [address] [place] [address] Eulogio Guidry, PT [address] [place], [place] [id number] Health Maintenance Due Date Last Done Comments DEXA/DXA scan for age 65+ 2013 08/03/2007 BMI (ht and wt on same day) for age 18+ 09/14/2022 09/14/2021, 04/23/2020, 09/28/2019, Additional history exists Depression screening for age 12+ 09/14/2022 09/14/2021, 04/23/2020, 04/12/2019, Additional history exists Medicare Wellness for age 65+ 09/15/2022, 04/23/2020, 04/12/2019, Additional history exists COVID-19 vaccine series ( season) 2023 03/24/2023, 07/09/2022, 12/25/2021, Additional history exists Influenza for age 65+ 06/03/2024 08/06/2021 , 07/30/2019, 07/27/2018, Additional history exists Colonoscopy through age 75 04/02/202604/02, 04/02/2021, 11/13/2015, Additional history exists Lipids for age 45-75 06/16/2028 06/16/2023, 04/13/2023, 12/21/2021, Additional history exists Tetanus booster 02/28/2029 02/28/2019, 11/03, 2002 Tdap Completed 02/28/2019, 11/13/2010 Pneumococcal series for age 65+ Completed 9, 04/11/2018 Zoster (shingles) series for age 50+ Completed 06/14/2019, 04/09/2019 Hepatitis C screening for ag e 18-79 Completed 09/14/2021 Procedures Procedure Name Priority Date/Time Associated Diagnosis Comments ECHO TTE COMPLETE WO CONTRAST Routine 01/16/2024 11:05 AM CDT Tricuspid valve insufficiency, unspecified etiology SCAN CORRESP-LABORATORY RESULTS 12/19/2023 12:00 AM CDT LIPID PANEL W REFLEX MEASURED LDL Routine 06/16/2023 10:04 AM CDT NSTEMI (non-ST elevated myocardial infarction) (HC) ANTI HCV Routine 09/14/2021 8:12 AM RECEIVING DISTRIBUTION STATION OPERATOR Need for hepatitis C screening test COLONOSCOPY 04/02/2021 11:02 AM CDT XR DXA BONE DENSITY 2 SITES AXIAL Routine 08/03/2007 3:43 PM CDT Screening Osteoporosis from Last 3 Months or Most Recently Relevant to Health Maintenance Results * ECHO TTE COMPLETE WO CONTRAST (01/16/2024 11:05 AM CDT) AORTIC VALVE MEAN PG 4 mmHg EJECTION FRACTION 64 % PEAK TR VELOCITY 2.9 m/s LVEDD 4.2 cm EJECTION FRACTION 60 - 65% Anatomical Region Laterality Modality Ultrasound 01/16/2024 10:0 7 AM CDT Narrative 01/16/2024 12:27 PM CDT ECHOCARDIOGRAM ABBEY MAJANO ? Accession#: ?? [id number] : ?1950 73 years Study Date: ?? 01/16/2024 10:07:27 AM Gender: F ?BP: ? 110/71 mmHg Height: 157.00 cm ?BSA: ?1.54 m? ? ? Weight: 55.00 kg ? Tech: ? MSR ? Referring MD: MERCEDES LEWIS Site: ? [facility] Reading Location: Mobile OP Patient Location: Outpatient. Procedure: 2D, Color Doppler and Spectral Doppler. Indication for study: Tricuspid valve insufficiency, unspecified etiology Cardiac Rhythm: Regular.Study quality: Fair. Final Impressions: 1. Normal LV size, normal wall thickness, normal global systolic function with an estimated EF of 60 - 65%. 2. Right ventricular cavity size is mildly enlarged, global systolic RV function is normal. 3. The aortic valve is trileaflet, no stenosis and moderate regurgitation. 4. The mitral valve is with posterior prolapse, moderate mitral regurgitation. Mitral annular disjunction ~ 5mm from parasternal long axis view. 5. Moderate tricuspid regurgitation. 6. Normal estimated pulmonary pressures by tricuspid regurgitation velocity and right atrial pressure (32 mmHg plus RAP). Chamber Sizes and Function Normal left ventricular size, normal wall thickness, normal global systolic function with an estimated EF of 60 - 65%. Left atrial size is normal. Right ventricular cavity size is mildly enlarged, global systolic RV function is normal. The right atrium is normal. The pulmonary artery is not well visualized. The sinus of Valsalva is normal sized. The ascending aorta is normal sized. Valves, RV Pressures and Diastolic Function The aortic valve is trileaflet, no stenosis and moderate regurgitation. The mitral valve is with posterior prolapse, moderate mitral regurgitation. Mitral annular calcification is present. Spectral Doppler shows Grade 1 pattern of LV diastolic filling. The tricuspid valve is normal in structure. Tricuspid regurgitation is moderate. The tricuspid regurgitant velocity is 2.8 m/s, the estimated right ventricular systolic pressure is 32 mmHg plus right atrial pressure. There is normal estimated pulmonary pressure by tricuspid regurgitation velocity and right atrial pressure. The pulmonic valve is not well visualized. No pulmonary regurgitation. Masses, Effusion, Shunts There is no pericardial effusion. The inferior vena cava is normal sized, respiratory size variation greater than 50%. No left to right shunting was detected by limited color flow Doppler interrogation of the interatrial septum. MEASUREMENTS AND CALCULATIONS 2-D Measurements and LV Function: LVID (d) 4.2 cm LV FS% (2D) ?? 38 % LVID (s) 2.6 cm LVOT diameter 2.0 cm IVS (d) ??0.9 cm HR ?63 bpm LVPW (d) 0.8 cm LA Vol index ??24 ml/m2 Ao Sinus 3.3 cm RV Max 4C (d) 4.4 cm Asc Ao ?? 3.6 cm Diastology: Mitral ?Tissue Doppler E Peak 0.5 m/s ??e', Septum ? 0.07 m/s A Peak 0.6 m/s ??e', Lateral ?0.05 m/s E/A ?0.8 ?E/e' Average ?? 7.94 DT ? 189 msec Aortic Valve: Vmax ? 1.4 m/s ??KITA (V) ?? 2.50 cm? AI P 1/2 486 msec VTI ?0.34 m ?? KITA (I) ?? 2.38 cm? AI Vol ?? 64 ml LVOT V max 1.1 m/s ??Max PG ?8 mmHg LVOT VTI ?? 0.26 m ?? Mean PG ?? 4 mmHg SV ? 82 ml ?Dim Index 0.76 SV index ?? 53 ml/m? ? ? CO ?5.2 l/min ?CI ?3.4 l/min/m? ? ? Mitral Valve: MVA ?4.0 cm? ? ? MV P 1/2 55 msec Tricuspid Valve and estimated PA pressures: TR Vmax 2.8 m/s TAPSE 2.4 cm TR maxG 32 mmHg . This study was interpreted by an [facility] accredited facility. ??Final ?? Procedure Note Ed Bojorquez MD - 01/16/2024 ECHOCARDIOGRAM ABBEY MAJANO : 1950 73 years Study Date: 01/16/2024 10:07:27 AM Gender: F BP: 110/71 mmHg Height: 157.00 cm BSA: 1.54 m? ? ? Weight: 55.00 kg Tech: INGE Referring MD: MERCEDES LEWIS Site: [facility] Reading Location: [facility] Patient Location: Outpatient. Procedure: 2D, Color Doppler and Spectral Doppler. Indication for study: Tricuspid valve insufficiency, unspecifiedetiology Cardiac Rhythm: Regular.Study quality: Fair. Final Impressions: 1. Normal LV size, normal wall thickness, normal global systolic functionwith an estimated EF of 60 - 65%. 2. Right ventricular cavity size is mildly enlarged, global systolic RVfunction is normal. 3. The aortic valve is trileaflet, no stenosis and moderateregurgitation. 4. The mitral valve is with posterior prolapse, moderate mitralregurgitation. Mitral annular disjunction ~ 5mm from parasternal long axisview. 5. Moderate tricuspid regurgitation. 6. Normal estimated pulmonary pressures by tricuspid regurgitationvelocity and right atrial pressure (32 mmHg plus RAP). Chamber Sizes and Function Normal left ventricular size, normal wall thickness, normal globalsystolic function with an estimated EF of 60 - 65%. Left atrial size isnormal. Right ventricular cavity size is mildly enlarged, global systolicRV function is normal. The right atrium is normal. The pulmonary artery isnot well visualized. The sinus of Valsalva is normal sized. The ascendingaorta is normal sized. Valves, RV Pressures and Diastolic Function The aortic valve is trileaflet, no stenosis and moderate regurgitation.The mitral valve is with posterior prolapse, moderate mitralregurgitation. Mitral annular calcification is present. Spectral Dopplershows Grade 1 pattern of LV diastolic filling. The tricuspid valve isnormal in structure. Tricuspid regurgitation is moderate. The tricuspidregurgitant velocity is 2.8 m/s, the estimated right ventricular systolicpressure is 32 mmHg plus right atrial pressure. There is normal estimatedpulmonary pressure by tricuspid regurgitation velocity and right atrialpressure. The pulmonic valve is not well visualized. No pulmonaryregurgitation. Masses, Effusion, Shunts There is no pericardial effusion. The inferior vena cava is normal sized,respiratory size variation greater than 50%. No left to right shunting wasdetected by limited color flow Doppler interrogation of the interatrialseptum. MEASUREMENTS AND CALCULATIONS 2-D Measurements and LV Function: LVID (d) 4.2 cm LV FS% (2D) 38 % LVID (s) 2.6 cm LVOT diameter 2.0 cm IVS (d) 0.9 cm HR 63 bpm LVPW (d) 0.8 cm LA Vol index 24 ml/m2 Ao Sinus 3.3 cm RV Max 4C (d) 4.4 cm Asc Ao 3.6 cm Diastology: Mitral Tissue Doppler E Peak 0.5 m/s e', Septum 0.07 m/s A Peak 0.6 m/s e', Lateral 0.05 m/s E/A 0.8 E/e' Average 7.94 DT 189 msec Aortic Valve: Vmax 1.4 m/s KITA (V) 2.50 cm? ? ? AI P 1/2 486 msec VTI 0.34 m KITA (I) 2.38 cm? ? ? AI Vol 64 ml LVOT V max 1.1 m/s Max PG 8 mmHg LVOT VTI 0.26 m Mean PG 4 mmHg SV 82 ml Dim Index 0.76 SV index 53 ml/m? ? ? CO 5.2 l/min CI 3.4 l/min/m? ? ? Mitral Valve: MVA 4.0 cm? ? ? MV P 1/2 55 msec Tricuspid Valve and estimated PA pressures: TR Vmax 2.8 m/s TAPSE 2.4 cm TR maxG 32 mmHg . This study was interpreted by an [facility] accredited facility. Final Mercedes Lewis MD ECHO ORD * SCAN CORRESP-LABORATORY RESULTS (12/19/2023 12:00 AM CDT) Scanner OTHER * LIPID PANEL W REFLEX MEASURED LDL (06/16/2023 10:04 AM CDT) CHOLESTEROL,TOTAL 143 100 - 199 mg/dL 06/16/2023 5:34 PM CDT [facility] Comment: Cholesterol, Total Reference Ranges Desirable <200 mg/dL Borderline 200-239 mg/dL High >=240 mg/dL TRIGLYCERIDES 107 <150 mg/dL 06/16/2023 5:34 PM CDT [facility] HDL CHOLESTEROL 55 >40 mg/dL 5:34 PM CDT [facility] NON-HDL CHOLESTEROL 88 <145 mg/dl 06/16/2023 5:34 PM CDT [facility] CHOL/HDL RATIO 2.60 <4.50 06/16/2023 5:34 PM CDT [facility] LDL CHOLESTEROL 67 <=130 mg/dL 06/16/2023 5:34 PM CDT [facility] VLDL CHOLESTEROL 21 <=30 mg/dL 06/16/2023 5:34 PM CDT [facility] PROVIDER ORDERED STATUS RANDOM 06/16/2023 5:34 PM CDT [facility] Blood BLOOD SPECIMEN / Unknown Venipuncture / Unknown 06/16/2023 10:04 AM CDT 06/16/2023 10:04 AM CDT Mandie VINCENT CHEMISTRY [facility] [address] [place] [address], * ANTI HCV (09/14/2021 8:12 AM RECEIVING DISTRIBUTION STATION OPERATOR) HEPATITIS C ANTIBODY Non-React yuly Non-React yuly 09/14/2021 3:16 PM RECEIVING DISTRIBUTION STATION OPERATOR [facility] Comment:Antibodies to HCV no t detected; does not exclude the possibility of exposure to HCV. Blood BLOOD SPECIMEN / Unknown Venipuncture / Unknown 09/14/2021 8:12 AM RECEIVING DISTRIBUTION STATION OPERATOR 09/14/2021 8:17 AM RECEIVING DISTRIBUTION STATION OPERATOR Daniele Schaeffer MD SEND OUTS [facility] [address] [place] [address], [place] * COLONOSCOPY (04/02/2021 11:02 AM CDT) 04/02/2021 11:0 2 AM CDT Narrative Transcriptions Benoit Plasencia MD - 04/02/2021 12:08 PM CDT Patient Name: Abbey Majano Procedure Date: 04/02/2021 Gender: Female Date of : 1950 Admit Type: Outpatient Procedure: Colonoscopy Proceduralist: Benoit Plasencia MD , Lo Gibbs (Nurse) Indications/Pre-Op Diagnosis: Surveillance: Personal history ofadenomatous polyps on last colonoscopy 5 years ago, Last colonoscopy: November 2015 Medications: Fentanyl 100 micrograms IV, Midazolam 1 mgIV, The level of sedation administered wasmoderate Procedure Description: The patient had risks, benefits and alternatives explained to andgave informed consent. The patient had a stable cardiopulmonary status and judged an adequate candidate for conscious sedation. The [id number] was passed through the anus and advanced tothe cecum, identified by appendiceal orifice and ileocecal valve. The colonoscopy was performed without difficulty. The patient toleratedthe procedure well. The quality of the bowel preparation was good. The ileocecal valve, appendiceal orifice, and rectum were photographed. Complications: No immediate complications. Estimated Blood Loss & Specimen: Estimated blood loss: none. Specimen collected - Yes and sent to Laboratory Findings: The perianal and digital rectal examinations were normal. A 2 mm polyp was found in the distal rectum. The polyp was sessile.The polyp was removed with a cold biopsy forceps. Resection and retrieval were complete. Multiple small and large-mouthed diverticula were found in thesigmoid colon. The exam was otherwise without abnormality on direct and retroflexion views. Impressions/Post-Op Diagnosis: - One 2 mm polyp in the distal rectum, removed with a cold biopsy forceps. Resected and retrieved. - Diverticulosis in the sigmoid colon. - The examination was otherwise normal on direct and retroflexionviews. Recommendation: - Patient has a contact number available for emergencies. The signsand symptoms of potential delayed complications were discussed with the patient. Return to normal activities tomorrow. Written discharge instructions were provided to the patient. - Resume previous diet. - Continue present medications. - Await pathology results. - Repeat colonoscopy is recommended. The colonoscopy date will be determined after pathology results from today's exam become available for review. Moderate Sedation: Moderate (conscious) sedation was administered by the endoscopy nurse and supervised by the endoscopist. The following parameters were monitored: oxygen saturation, heart rate, respiratory rate, blood pressure, adequacy of pulmonary ventilation and reponse to care. Please refer to the patient's medical record flowsheets and nursing notes for moderate sedation details. Total physician intraservice time was 22 minutes. Benoit Plasencia MD 04/02/2021 12:08:44 PM This report has been signed electronically. Note Initiated On: 04/02/2021 11:02 AM Procedure Code(s): --- Professional --- 83836, Colonoscopy, flexible; with biopsy, single or multiple Diagnosis Code(s): --- Professional --- Z86.010, Personal history of colonicpolyps K62.1, Rectal polyp K57.30, Diverticulosis of large intestine without perforation or abscess withoutbleeding CPT copyright 2020 [employer]. All rights reserved. The codes documented in this report are preliminary and upon bleacher sulfite pulp reviewmay be revised to meet current compliance requirements. Scope In: 11:46:22 AM Scope Withdrawal Time 0 hours 10 minutes 48 seconds Scope Out: 12:04:46 PM Benoit Plasencia MD PROCEDURE ORD * XR DXA BONE DENSITY 2 SITES (08/03/2007 3:43 PM CDT) Anatomical Region Laterality Modality Spine, HIPS, HIPL, HIPR Other 08/03/2007 3:43 PM CDT Narrative 08/11/2007 2:16 PM RECEIVING DISTRIBUTION STATION OPERATOR Please see scanned document for results of this study. Procedure Note Marge Ryan D - 08/11/2007 Please see scanned document for results of this study. Marco A Arias MD DEXA from Last 3 Months or Most Recently Relevant to Health Maintenance Advance Directives Documents on File Type Date Recorded Patient Design Release Engineer Expl anation Healthcare Directive 06/19/2010 HEALTH CARE DIRECTIVE, [facility], 06/19/10 * Full Code (Latest Code Status on File) Date Activated Date Inactivated Comments 04/13/2023 8:37 AM 04/13/2023 7:11 PM Question Answer Comments Code Status Discussion: Reviewed Preferences * Full Code Date Activated Date Inactivated Comments 04/12/2023 3:07 PM 04/13/2023 8:37 AM Question Answer Comments Code Status Discussion: Unable to Assess Preferences, Provider to review later Care Teams Buttoner Relationship Specialty Start Date End Date Nelda Dawkins MD [address] [place] [address] PCP - General Family Practice 04/15/23
--- OUTSIDE RECORDS SUMMARY | 2024-02-07 07:58 | XMS_ITS | Referral Summary ---
Author Name Unknown Organization [facility] Address [address] [place] [address] Care Team Providers Care Fisher Diving Name Role Phone Unavailable Primary Care Provider Unavailabl e Source Comments Patient records contain information from all sites at [facility]. For routine questions regarding patient records, call [phone] during business hours, M-F 8:00 AM - 5:00 PM Central Time. Record requests for emergency care only can be directed to [phone] at any time.[facility] Allergies Active Allergy Reactions Criticality Noted Date Comments Milk Other (see comments) High 11/19/2011 Other reaction(s): Runny Nose rhinitis Soy Protein Headache High 11/19/2011 Medications Medication Sig Dispensed Refills Start Date End Date Status iodine-potassium iodide (LUGOLS) 5-10 % oral solution Take 1 mL by mouth daily. 06/23/2017 Active acetaminophen (TYLENOL) 500 mg tablet Take 1-2 tablets by mouth every 6 (six) hours as needed. For pain 08/20/2015 Active fluoride, sodium, 1.1 % gel Apply to teeth. 05/16/2017 Active rosuvastatin (CRESTOR) 5 mg tablet TAKE 1 TABLET (5 MG) BY MOUTH AT BEDTIME. 10/26/2021 Active cb-on-poxtm-O54-dmqhpv n-lutein 800 mcg-1 mg- 500 mcg-500 mcg capsule Take by mouth daily. Active cholecalciferol (VITAMIN D3) 25 mcg (1,000 Unit) capsule 10/03/2022 Acti ve aspirin 81 mg chewable tablet Chew 81 mg. 04/13/2023 Active nitroglycerin (NITROSTAT) 0.[address] 0.4 mg under the tongue every 2 (two) hours as needed. 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 Anxiety Generalized Disorder 06/26/2013 Insomnia 06/22/2013 Deficiency Vitamin D 08/04/2007 Hyperlipidemia Mixed 07/28/2007 Immunizations Name Administration Dates Next Due Influenza high dose QV(65 ye ars or older) (PF) 07/24/2022 Influenza, Injectable, Quadrivalent 01/2021,07/30/2019,07/27/2018,2017 PCV13 04/11/2018 PPSV23(Discontinued) 06/14/2019 RZV (SHINGRIX) 06/14/2019,04/09/2019,03/29/2019 Td (Adult), adsorbed 2002 Tdap 02/28/2019,11/13/2010 influenza high dose (65 year s or older) (PF) 07/30/2019,07/27/2018 influenza vaccine QV(FLUBLOK ) (18 years or older) (PF) 08/06/2021 Social History Tobacco Use Types Packs/Day Years Used Date Smoking Tobacco: Former Smokeless Tobacco: Never Tobacco Cessation:Counseling Given: Not Answered Alcohol Use Standard Drinks/Week Comments Yes 0 (1 standard drink = 0.6 oz pur e alcohol) Humiliation, Afraid, Rape, and Kick questionnair e Answer Date Recorded Within the last year, have y ou been afraid of your partner or ex-partner? No 12/09/2022 Within the last year, have y ou been humiliated or emotionally abused in other ways by your partner or ex-partner? No Within the last year, have y ou been kicked, hit, slapped, or otherwise physically hurt by your partner or ex-partner? No 12/09/2022 Within the last year, have y ou been raped or forced to have any kind of sexual activity by your partner or ex-partner? No 12/09/2022 Social Connection and Isolat ion Panel [NHANES] Answer Date Recorded In a typical week, how many times do you talk on the phone with family, friends, or neighbors? More than three times a week 12/09/2022 How often do you get togethe r with friends or relatives? More than three times a week 12/09/2022 How often do you attend chur or congregation services? More than 4 times per year 12/09/2022 Do you belong to any clubs o r organizations such as gnosticism groups, unions, fraternal or athletic groups, or school groups? Yes 12/09/2022 How often do you attend meet ings of the clubs or organizations you belong to? More than 4 times per year 12/09/2022 Are you , , di vorced, , never , or living with a partner? 12/09/2022 AUDIT-C Answer Date Recorded Q1: How often do you have a drink containing alc ohol? 2-4 times a month 12/09/2022 Q2: How many drinks containi ng alcohol do you have on a typical day when you are drinking? 1 or 2 12/09/2022 Q3: How often do you have si x or more drinks on one occasion? Never 12/09/2022 Overall Financial Resource Strain (CARDIA) Answe r Date Recorded How hard is it for you to pa y for the very basics like food, housing, medical care, and heating? Not hard at all 12/09/2022 [facility] of Occupat ional Health - Occupational Stress Questionnaire Answer Date Recorded Do you feel stress - tense, restless, nervous, or anxious, or unable to sleep at night because your mind is troubled all the time - these days? To some extent 12/09/2022 Exercise Vital Sign Answer Date Recorde d Days of Exercise per Week Not on file 2022 On average, how many minutes do you engage in exercise at this level? 30 min 12/09/2022 Hunger Vital Sign Answer Date Recorded Within the past 12 months, y ou worried that your food would run out before you got the money to buy more. Never true 12/10/19 Within the past 12 months, t he food you bought just didn't last and you didn't have money to get more. Never true 12/09/2022 PRAPARE - Transportation Answer Date Re corded In the past 12 months, has l ack of transportation kept you from medical appointments or from getting medications? No 06/2023 In the past 12 months, has l ack of transportation kept you from meetings, work, or from getting things needed for daily living? No 12/09/2022 Housing Stability Vital Sign Answer Wili e Recorded In the last 12 months, was t here a time when you were not able to pay the mortgage or rent on time? No 12/09/2022 In the last 12 months, how many places have you lived? 1 12/09/2022 In the last 12 months, was t here a time when you did not have a steady place to sleep or slept in a assisted (including now)? No 12/09/2022 Nutrition Answer Date Recorded Nutrition: EVOO Fat Source No 12/09 On average, how many serving s of fruits and vegetables do you eat per day (serving size is equal to 1 cup or approximately the size of a tennis ball)? 6-7 12/09/2022 Dental Answer Date Recorded Dental: Regular Dentist Yes 12/10/19 Employment Answer Date Recorded Employment status Retired 12/09/2022 Education Answer Date Recorded What is the highest level of school you have completed or the highest degree you have received? Master's degree (e.g., MA, MS, Vicenta, MEd, MARKETING DATA SPECIALIST, [employer]) 12/09/2022 Sex and Gender Information Value Date Recorded Sex Assigned at Female 03/09/2018 2:08 PM CDT Gender Identity Female 03/09/2018 2:08 PM CDT Sexual Orientation Not on file Last Filed Vital Signs Vital Sign Reading Time Taken Comments Blood Pressure 114/55 10/20/2022 2:01 PM WOMEN'S STUDIES LECTURER Pulse 79 10/20/2022 2:01 PM WOMEN'S STUDIES LECTURER Temperature 36.4 ??C (97.5 ??F) 11/30/2022 2 :33 PM WOMEN'S STUDIES LECTURER Respiratory Rate 16 03/08/2017 8:07 AM CDT Vital sign result from Clinical Notes. Oxygen Saturation - - Inhaled Oxygen Concentration - - Weight 57 kg (125 lb 11.2 oz) 10/20/2022 2:01 PM WOMEN'S STUDIES LECTURER Height 162.6 cm (5' 4) 03/17/2020 7:57 AM CDT Body Mass Index 21.58 03/17/2020 7:57 AM CDT Plan of Treatment Upcoming Encounters Date Type Department Care Team (Late st Contact Info) Description 03/15/2024 1:30 PM CDT Office Visit Department of Dental Specialties in [place], [place] [address] [place] [address] Ashley Ozuna D.D.S. [address] [place] [address] Procedures Procedure Name Priority Date/Time Associated Diagnosis Comments EXTI LIPID PANEL, S Routine 04/13/2023 7 :51 AM CDT EXTI BASIC METABOLIC PANEL, S/P Routine 04/12/2023 4:59 PM CDT BI BREAST SCREENING BILATERAL WITH TOMOSYNTHESIS Routine 12/18/2021 2:06 PM CDT WA PANORAMIC RADIOGRAPHIC IMAGE Routine 07/02/2021 7:42 AM CDT Chronic Periodontitis Localized Severe WA PERIODONTAL MAINTENANCE SUBSQ Routine 07/01/2021 12:45 PM CDT Chronic Periodontitis Localized Severe WA RE-EVALUATION OF PROSTHESIS Routine 06/25/2020 2:30 PM CDT Cancer Mouth Personal History from Last 3 Months or Most Recently Relevant to Health Maintenance Results * [facility] (07/02/2021 7:42 AM CDT) Narrative Tali Fletcher D.D.S., M.S. - 07/02/2021 7:42 AM CDT There are no central bony or odontogenic lesions in the body or ascending rami of the mandible. Mandibular condyles appear well rounded and well corticated with no signs of pathology. Maxillary sinuses appear to be clear without clouding or gross pathology. Dental roots appear normal with no signs of resorption or periapical radiolucencies, except for radiolucency around #3 roots and alveolar bone loss around this tooth. No dental caries is evident; however, this radiograph is non-diagnostic for all but the largest carious lesions. Ashley Ozuna D.D.S. 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 See document viewer.
--- OUTSIDE RECORDS SUMMARY | 2024-02-07 07:58 | XMS_ITS | Clinical Summary ---
Author Name Unknown Organization [facility] Address [address] [place] [address] Care Team Providers Care Enrollment Services Dean Name Role Phone Unavailable Primary Care Provider Unavailabl e Source Comments Patient records contain information from all sites at [facility]. For routine questions regarding patient records, call [phone] during business hours, M-F 8:00 AM - 5:00 PM Central Time. Record requests for emergency care only can be directed to [phone] at any time.[facility] Allergies Active Allergy Reactions Criticality Noted [...] MG) BY MOUTH AT BEDTIME. 10/26/2021 Active rq-ja-eadee-F53-ufyfjs n-lutein 800 mcg-1 mg- 500 mcg-500 mcg [...] ) (18 years or older) (PF) 08/06/2021 Family History Medical History Relation Name Comments Colon cancer Father wali garland Lung cancer Father wali garland Other cancer Father wali garland Rectal cancer Father wali garland Relation Name Status Comments Father wali garland Social History Tobacco Use Types Packs/Day Years [...] How often do you attend chur or church services? More than 4 times per year 12/09/2022 Do you belong to any clubs o r organizations such as religion groups, unions, fraternal or athletic groups, or [...] and heating? Not hard at all 12/09/2022 [facility] [place] of Occupat ional Health - Occupational Stress [...] place to sleep or slept in a long term (including now)? No 12/09/2022 Nutrition Answer Date [...] Master's degree (e.g., MA, MS, Vicenta, MEd, RETURNED ITEM CLERK, [employer]ANG) 12/09/2022 Sex and Gender Information Value Date Recorded Sex Assigned at Female 03/09/2018 2:08 PM CDT Gender Identity Female 03/09/2018 2:08 PM CDT Sexual Orientation Not on file Last Filed Vital Signs Vital Sign Reading Time Taken Comments Blood Pressure 114/55 10/20/2022 2:01 PM AIR OPERATIONS MANAGER Pulse 79 10/20/2022 2:01 PM AIR OPERATIONS MANAGER Temperature 36.4 ??C (97.5 ??F) 11/30/2022 2 :33 PM AIR OPERATIONS MANAGER Respiratory Rate 16 03/08/2017 8:07 AM CDT Vital sign result from Clinical Notes. Oxygen Saturation - - Inhaled Oxygen Concentration - - Weight 57 kg (125 lb 11.2 oz) 10/20/2022 2:01 PM AIR OPERATIONS MANAGER Height 162.6 cm (5' 4) 03/17/2020 7:57 AM CDT Body Mass Index 21.58 03/17/2020 7:57 AM CDT Plan of Treatment Upcoming Encounters Date Type Department Care Team (Late st Contact Info) Description 03/15/2024 1:30 PM CDT Office Visit Department of Dental Specialties in [place], [place] [address] [place] [address] Ashley Ozuna D.D.S. [address] [place] [address] Health Maintenance Due Date Last Done Comments Bone Density Scan (Osteoporo sis Screen) 1948 CT Colonography 1950 Cologuard 1950 Hepatitis C Screening 1950 Dental Oral Exam 06/25/2021 06/25/2020, , 05/25/2019, Additional history exists Dental Prophylaxis 12/29/2021 07/01/2021, 0 12/24/2020, 06/25/2020, Additional history exists Mammogram 12/18/2022 12/18/2021, 12/01, 12/05/2019 Dental X-Ray: Bitewings 05/27/2023 05/27/20 21 (Performed elsewhere), 04/08/2020 (Performed elsewhere), 06/27/2018 (Performed elsewhere), Additional history exists COVID-19 Vaccine (2022-11 4 season) 2023 03/24/2023, 07/09/2022, 12/25/2021, Additional history exists Depression Screening (Annual PHQ-2) 10/03/2023 Fall Risk Screen (Annual) 10/03/2023 Colonoscopy 04/02/2026 04/02/2021 Colorectal Cancer Surveillance 04/02/2026 Fasting Glucose for Diabetes Screening 04/12/2026 04/12/2023, 09/14/2021, 04/09/2020, Additional history exists Dental X-Ray: Full Mouth 06/27/2026 018 (Performed elsewhere) Lipid (Cholesterol) Screening 04/13/2028, 12/21/2021, 09/14/2021, Additional history exists DTaP,Tdap,and Td Vaccines (3 - Td or Tdap) 02/28/2029 02/28/2019, 11/13/2010, 2002 Dental X-ray: Panorex 07/02/2029 07/02/2021 , 06/26/2019, 07/22/2015 Pneumococcal vaccine (65+ years) Completed 06/14/20, 04/11/2018 Zoster Vaccines Completed 06/14/2019, 05/2019, 03/29/2019 Influenza Vaccine Completed 08/02/2023, , 08/06/2021, Additional history exists Procedures Procedure Name Priority Date/Time Associated Diagnosis Comments EXTI LIPID PANEL, S Routine 04/13/2023 7 :51 AM CDT EXTI BASIC METABOLIC PANEL, S/P Routine 04/12/2023 4:59 PM CDT BI BREAST SCREENING BILATERAL WITH TOMOSYNTHESIS Routine 12/18/2021 2:06 PM CDT TX PANORAMIC RADIOGRAPHIC IMAGE Routine 07/02/2021 7:42 AM CDT Chronic Periodontitis Localized Severe TX PERIODONTAL MAINTENANCE SUBSQ Routine 07/01/2021 12:45 PM CDT Chronic Periodontitis Localized Severe TX RE-EVALUATION OF PROSTHESIS Routine 06/25/2020 2:30 PM [...] Advance Directives For more information, please contact: [phone] Documents on File Type Date Recorded Patient Sponge Hooker Expl anation Advance Directives 07/21/2015 12:00 AM Andreina worthy document. See document viewer.
--- OUTSIDE RECORDS SUMMARY | 2024-02-07 07:58 | XMS_ITS ---
Author Name Unknown Organization [facility] Address [address] [place] [address] Care Team Providers Care Manager Food Safety Name Role Phone Unavailable Unavailable Unavailable Surgery Details Not on file Complications Check Surgery Details section. Procedure Estimated Blood Loss Check Surgery Details section. Procedure Findings Check Surgery Details section. Procedure Specimens Taken Check Surgery Details section.
--- NOTE | 2024-02-07 08:15 | MM_ITS ---
Patient: EMMY JIMÉNEZ Facility:?[facility] Patient ID:?[id number] Site Patient ID:?[id number] Site :?[id number] Study:?XRay-Breast Bilateral 3D W/CAD-02/07/2024 8:32:30 AM Ordering Physician:Bibi Peterson Final Report: BILATERAL SCREENING MAMMOGRAM WITH COMPUTER-AIDED DETECTION AND TOMOSYNTHESIS TECHNIQUE: CC and MLO views were obtained. These mammographic images have been obtained using full-field digital technique. These mammographic images were interpreted with the benefit of computer-aided detection. Breast Tomosynthesis was used in this interpretation. COMPARISON FILM: 02/02/23, 12/18/21, 12/12/20. FINDINGS: The breasts are heterogeneously dense, which may obscure small masses IMPRESSION: There is no radiographic evidence for malignancy. ASSESSMENT: BI-RADS Category 2: Benign RECOMMENDATION: Routine screening mammogram in 1 year. A lay language report of this examination will be provided to the patient. Ed Mehta M.D. Diagnostic Radiologist [email or web address] Transcribed: 12:50 p.mLee blanco/Dictated by: Ed Mehta MD @ 02/07/2024 8:58:00 AM Signed by:?Ed Mehta MD @02/07/2024 1:51:13 PM (Electronic Signature)
== END 2024-02-07 07:54 | disposition home or self-care (01) ==
LOC: MAMMO 07:54
PROVIDERS: PCP Family Medicine; Visit Provider Family Medicine
DX: Z12.31 Encounter for screening mammogram for malignant neoplasm of breast (principal); R92.2 Inconclusive mammogram
CPT/HCPCS: 77063; 77067

== ENCOUNTER 2025-02-22 13:40 | Outpatient (CLI) | payer MEDICARE, OTHER, SELFPAY ==
--- NOTE | 2025-02-22 14:00 | CRLHL7_ITS ---
For Patients: As a result of the Century Cures Act, medical imaging exams and procedure reports are released immediately into your electronic medical record. You may view this report before your referring provider. If you have questions, please contact your health care provider. INDICATION: BILATERAL SCREENING MAMMOGRAM, ASYMPTOMATIC 74 Y/O FEMALE COMPARISON: 02/07/2024, 02/02/2023, TECHNIQUE: Digital mammogram in CC and MLO projections including computer-aided detection (CAD) and tomosynthesis. BREAST COMPOSITION: The breasts are extremely dense, which lowers the sensitivity of mammography. FINDINGS: No suspicious findings. ASSESSMENT: BI-RADS 2 Benign RECOMMENDATION: Annual screening mammogram. A lay language report of this examination will be provided to the patient. Dictated by: Ed Mehta MD @ 02/26/2025 09:16:54 (Electronically Signed)
== END 2025-02-22 13:41 | disposition home or self-care (01) ==
LOC: MAMMO 13:41
PROVIDERS: PCP Family Medicine; Visit Provider Family Medicine
DX: Z12.31 Encounter for screening mammogram for malignant neoplasm of breast (principal); R92.343 Mammographic extreme density, bilateral breasts
CPT/HCPCS: 77063; 77067